=== PATIENT | male | born 1965 | race Caucasian/White ===

== ENCOUNTER 2018-06-25 11:27 | Emergency (ER) | payer SELFPAY ==
[~2018-06-25 11:27] MED LIST: AMOX1TAB PO; CAR200 PO; DIP5L PO; IBU200 PO; IBUP-136 PO; KET10 PO; LOR5/325 PO; MULT1CAP59 PO; PHEN100 PO; PRE20 PO; no rtn meds
--- NOTE | 2018-06-25 11:31 | ER Report ---
History and Physical Time Seen By MD: 11:31 HPI/ROS CHIEF COMPLAINT: Rib and abdominal pain HISTORY OF PRESENT ILLNESS: This is a 52-year-old male presents to the emergency department for right rib and abdominal pain. Patient states that about 5 days ago, he was running up his stairs outside of his house, slipped backwards and fell down on the stairs, nocturia and out of him, he did have a positive loss of consciousness, states he woke up when he was too cold. Has had intermittent headaches since then as well as right rib pain and increased right-sided abdominal pain. Denies fevers or chills. Denies nausea or vomiting. States has been several days since his last bowel movement. REVIEW OF SYSTEMS: Constitutional: No fever, no chills. Eyes: No discharge. ENT: No sore throat. Cardiovascular: As above. Respiratory: As above. Gastrointestinal: As above. Genitourinary: No hematuria. Musculoskeletal: As above. Skin: No rashes. Neurological: As above. Allergies: Coded Allergies: latex (Unverified Allergy, Mild, 06/25/18) Uncoded Allergies: sodium penathol (Allergy, Mild, 12/18/10) Home Meds Reported Medications Diphenhydramine Hcl (BENADRYL) 25 Mg Capsule, 25 MG PO Q6-8H PRN for ALLERGY SYMPTOMS, CAPSULE 06/25/18 Multivitamins (Multivitamin) 1 Each Capsule, 1 TAB PO DAILY 05/10/12 Carbamazepine (Tegretol) 200 Mg Tab, 200 MG PO BID, 0 Refills 02/02/11 Discontinued Scripts Hydrocodone Bit/Acetaminophen (HYDROCODON-ACETAMINOPHEN 5-325) 1 Each Tablet, 1- 2 EACH PO Q4-6H, #30 Prov:KASH FATIMA MD 03/16/14 Ketorolac Tromethamine (KETOROLAC TROMETHAMINE) 10 Mg Tab, 10 MG PO Q6H, #20 TAB Prov:KASH FATMIA MD 03/16/14 Past Medical/Surgical History Patient has a past medical and surgical history of tonsillectomy, seizures, GERD, headaches, left ankle arthritis, back pain, alcohol abuse. Hx Smoking: No Hx Substance Use Disorder: No Hx Alcohol Use: Yes (daily ) Constitutional Vital Sign - Last 24 Hours 06/25/18 06/25/18 06/25/18 06/25/18 11:30 11:30 11:32 11:37 Temp 97.5 Pulse 79 75 80 Resp 20 B/P (MAP) 131/88 (102) 131/88 Pulse Ox 93 91 91 06/25/18 06/25/18 06/25/18 06/25/18 11:42 11:47 11:52 11:57 Pulse 77 81 80 79 Pulse Ox 92 94 92 92 06/25/18 06/25/18 06/25/18 06/25/18 12:02 12:07 12:12 12:17 Pulse ? 80 82 Pulse Ox 89 92 06/25/18 06/25/18 06/25/18 06/25/18 12:22 12:27 12:32 12:47 Pulse 76 73 84 Pulse Ox 92 90 91 92 06/25/18 06/25/18 06/25/18 06/25/18 12:52 12:57 13:00 13:02 Pulse 88 80 78 B/P (MAP) ???/??? (1665) Pulse Ox 91 92 92 06/25/18 06/25/18 06/25/18 06/25/18 13:07 13:12 13:17 13:27 Pulse 77 76 80 81 Pulse Ox 91 90 91 92 06/25/18 06/25/18 06/25/18 06/25/18 13:30 13:32 13:37 13:42 Pulse 78 76 75 B/P (MAP) 146/101 (116) Pulse Ox 92 92 90 06/25/18 06/25/18 13:47 13:57 Pulse 78 80 Pulse Ox 91 94 Physical Exam General Appearance: The patient is alert, has no immediate need for airway protection and no signs of toxicity. Eyes: Pupils equal and round no pallor or injection. ENT, Mouth: Mucous membranes are moist. Respiratory: There are no retractions, lungs are clear to auscultation. Cardiovascular: Regular rate and rhythm, no murmurs, clicks or rubs. Gastrointestinal: Abdomen is round, moderately firm, tenderness to the right costal margin. no masses, hypoactive bowel sounds, no abdominal bruits. There is left sided retroperitoneal bruising. Neurological: Alert and oriented 4. Moving all extremities. Following all commands. No focal neuro deficits. Skin: Warm and dry, no rashes. Musculoskeletal: Neck is supple non tender. Extremities are nontender, nonswollen and have full range of motion. DIFFERENTIAL DIAGNOSIS: After history and physical exam differential diagnosis was considered for fracture, pneumothorax, pneumomediastinum, liver fracture, kidney fracture. Medical Decision Making Data Points Result Diagram: 06/25/18 1152 06/25/18 1152 Laboratory Hematology Test 06/25/18 11:52 06/25/18 13:24 Red Blood Count 4.53 M/uL (4.00-5.60) Mean Corpuscular Volume 102.8 fL (80.0-96.0) Mean Corpuscular Hemoglobin 34.7 pg (26.0-33.0) Mean Corpuscular Hemoglobin Concent 33.7 g/dL (32.0-36.0) Red Cell Distribution Width 13.4 % (11.5-14.5) Mean Platelet Volume 7.9 fL (7.2-11.1) Neutrophils (%) (Auto) 67.3 % (39.4-72.5) Lymphocytes (%) (Auto) 23.1 % (17.6-49.6) Monocytes (%) (Auto) 8.8 % (4.1-12.4) Eosinophils (%) (Auto) 0.1 % (0.4-6.7) Basophils (%) (Auto) 0.7 % (0.3-1.4) Nucleated RBC Relative Count (auto) 0.0 /100WBC Neutrophils # (Auto) 4.4 K/uL (2.0-7.4) Lymphocytes # (Auto) 1.5 K/uL (1.3-3.6) Monocytes # (Auto) 0.6 K/uL (0.3-1.0) Eosinophils # (Auto) 0.0 K/uL (0.0-0.5) Basophils # (Auto) 0.0 K/uL (0.0-0.1) Nucleated RBC Absolute Count (auto) 0.00 K/uL Sodium Level 139 mmol/L (137-145) Potassium Level 3.8 mmol/L (3.5-5.0) Chloride Level 104 mmol/L (98-107) Carbon Dioxide Level 23 mmol/L (22-30) Blood Urea Nitrogen 8 mg/dl (9-21) Creatinine 0.70 mg/dl (0.66-1.25) Glomerular Filtration Rate Calc > 60.0 Random Glucose 95 mg/dl (75-110) Calcium Level 9.4 mg/dl (8.4-10.2) Total Bilirubin 1.0 mg/dl (0.2-1.3) Aspartate Amino Transf (AST/SGOT) 60 U/L (0-35) Alanine Aminotransferase (ALT/SGPT) 76 U/L (0-56) Alkaline Phosphatase 78 U/L (0-126) Total Protein 7.6 g/dl (6.3-8.2) Albumin 4.5 g/dl (3.5-5.0) Urine Color Yellow Urine Clarity Clear Urine pH 5.0 pH (4.8-9.5) Urine Specific [place] S3 Urine Protein Negative mg/dL (NEGATIVE) Urine Glucose (UA) Negative mg/dL (NEGATIVE) Urine Ketones 20 mg/dL (NEGATIVE) Urine Blood Negative (NEGATIVE) Urine Nitrite Negative (NEGATIVE) Urine Bilirubin Negative (NEGATIVE) Urine Urobilinogen 2.0 mg/dL (0.2-1.9) Urine Leukocyte Esterase Negative (NEGATIVE) Urine RBC <1 /HPF (0-2/HPF) Urine WBC None /HPF (0-5/HPF) Urine Squamous Epithelial Cells None /LPF (</=FEW) Urine Bacteria Negative /HPF (NONE-FEW) Urine Mucus None /HPF (NONE-FEW) Chemistry Test 06/25/18 11:52 06/25/18 13:24 White Blood Count 6.5 k/uL (4.5-11.0) Red Blood Count 4.53 M/uL (4.00-5.60) Hemoglobin 15.7 g/dL (14.0-18.0) Hematocrit 46.6 % (42.0-52.0) Mean Corpuscular Volume 102.8 fL (80.0-96.0) Mean Corpuscular Hemoglobin 34.7 pg (26.0-33.0) Mean Corpuscular Hemoglobin Concent 33.7 g/dL (32.0-36.0) Red Cell Distribution Width 13.4 % (11.5-14.5) Platelet Count 216 K/uL (150-450) Mean Platelet Volume 7.9 fL (7.2-11.1) Neutrophils (%) (Auto) 67.3 % (39.4-72.5) Lymphocytes (%) (Auto) 23.1 % (17.6-49.6) Monocytes (%) (Auto) 8.8 % (4.1-12.4) Eosinophils (%) (Auto) 0.1 % (0.4-6.7) Basophils (%) (Auto) 0.7 % (0.3-1.4) Nucleated RBC Relative Count (auto) 0.0 /100WBC Neutrophils # (Auto) 4.4 K/uL (2.0-7.4) Lymphocytes # (Auto) 1.5 K/uL (1.3-3.6) Monocytes # (Auto) 0.6 K/uL (0.3-1.0) Eosinophils # (Auto) 0.0 K/uL (0.0-0.5) Basophils # (Auto) 0.0 K/uL (0.0-0.1) Nucleated RBC Absolute Count (auto) 0.00 K/uL Glomerular Filtration Rate Calc > 60.0 Calcium Level 9.4 mg/dl (8.4-10.2) Total Bilirubin 1.0 mg/dl (0.2-1.3) Aspartate Amino Transf (AST/SGOT) 60 U/L (0-35) Alanine Aminotransferase (ALT/SGPT) 76 U/L (0-56) Alkaline Phosphatase 78 U/L (0-126) Total Protein 7.6 g/dl (6.3-8.2) Albumin 4.5 g/dl (3.5-5.0) Urine Color Yellow Urine Clarity Clear Urine pH 5.0 pH (4.8-9.5) Urine Specific [place] S3 Urine Protein Negative mg/dL (NEGATIVE) Urine Glucose (UA) Negative mg/dL (NEGATIVE) Urine Ketones 20 mg/dL (NEGATIVE) Urine Blood Negative (NEGATIVE) Urine Nitrite Negative (NEGATIVE) Urine Bilirubin Negative (NEGATIVE) Urine Urobilinogen 2.0 mg/dL (0.2-1.9) Urine Leukocyte Esterase Negative (NEGATIVE) Urine RBC <1 /HPF (0-2/HPF) Urine WBC None /HPF (0-5/HPF) Urine Squamous Epithelial Cells None /LPF (</=FEW) Urine Bacteria Negative /HPF (NONE-FEW) Urine Mucus None /HPF (NONE-FEW) Urinalysis Test 2/20/19 13:24 Urine Color Yellow Urine Clarity Clear Urine pH 5.0 pH (4.8-9.5) Urine Specific [place] S3 Urine Protein Negative mg/dL (NEGATIVE) Urine Glucose (UA) Negative mg/dL (NEGATIVE) Urine Ketones 20 mg/dL (NEGATIVE) Urine Blood Negative (NEGATIVE) Urine Nitrite Negative (NEGATIVE) Urine Bilirubin Negative (NEGATIVE) Urine Urobilinogen 2.0 mg/dL (0.2-1.9) Urine Leukocyte Esterase Negative (NEGATIVE) Urine RBC <1 /HPF (0-2/HPF) Urine WBC None /HPF (0-5/HPF) Urine Squamous Epithelial Cells None /LPF (</=FEW) Urine Bacteria Negative /HPF (NONE-FEW) Urine Mucus None /HPF (NONE-FEW) EKG/Imaging Imaging Location: [facility] Patient: Marty Orlando : 1965 Visit/Account:[id number] Date of Sevice: 06/25/2018 Exam type: RIBS RIGHT History: fall, rib and back pain Comparison: Two-view chest performed today. Findings: Two views of the inferior right ribs demonstrates a minimally displaced fracture through the posterior lateral aspect of the right 10th rib IMPRESSION: 1. Minimally displaced fracture through the posterior lateral aspect the right 10th rib Report Dictated By: Heidy Nunes MD at 06/25/2018 1:14 PM Report E-Signed By: Heidy Nunes MD at 06/25/2018 1:16 PM WSN:[email or web address] Location: [facility] Patient: Marty Orlando : 1965 Visit/Account:[id number] Date of Sevice: 06/25/2018 Exam type: CHEST PA LAT History: fall, rib and back pain Comparison: Today's right rib series. Findings: There is a minimally displaced fracture through the posterior lateral aspect right 10th rib. There is no evidence of pulmonary consolidation pleural effusion or pneumothorax or pneumomediastinum. The cardiac silhouette is normal in size. IMPRESSION: 1. Minimally displaced fracture through the posterior lateral aspect of the right 10th rib Report Dictated By: Heidy Nunes MD at 06/25/2018 1:16 PM Report E-Signed By: Heidy Nunes MD at 06/25/2018 1:16 PM MELVINN:SOWMYA Location: [facility] Patient: Marty Orlando : 1965 Visit/Account:[id number] Date of Sevice: 06/25/2018 EXAMINATION: CT abdomen and pelvis with contrast COMPARISON: None. HISTORY: fall, rib and back pain since 06/21/2018. PROCEDURE: Multiplanar contrast enhanced CT of the abdomen and pelvis with 75 mL intravenous Isovue 370. One of the following dose optimization techniques was utilized in the performance of this exam: Automated exposure control; adjustment of the mA and/or kV according to the patient's size; or use of an iterative reconstruction technique. Specific details can be referenced in the facility's radiology CT exam operational policy. FINDINGS: Visualized thorax: No acute findings. Liver: Hepatic steatosis. Gallbladder and biliary system: Negative Spleen: Negative. Pancreas: Negative. Adrenal glands: Negative. Kidneys and bladder: No renal mass or evidence of an obstructive uropathy. Urinary bladder is unremarkable. Vessels: Minimal iliac atherosclerosis. Otherwise negative. Bowel and mesentery: Tiny hiatal hernia. No gastric distention. No small bowel obstruction. Appendix is unremarkable. Small amount of stool in the colon. Left hemicolon mild diverticulosis. No bowel or mesenteric inflammation. Pelvic organs: Negative. Lymph nodes: No adenopathy. Free air/free fluid: None. Abdominal wall and osseous structures: Inguinal herniorrhaphy. No hernia. Minimal degenerative change throughout the osseous structures. Right posterior 10th rib nondisplaced fracture. Right posterior 11th rib healed fracture. Right posterior 12th rib nondisplaced fracture. L2 right transverse process age-indeterminate mildly displaced fracture. IMPRESSION: 1. Right posterior 10th and 12th rib nondisplaced fractures. 2. L2 right transverse process age-indeterminate mildly displaced fracture. 3. No findings of acute soft tissue trauma in the abdomen or pelvis. 4. Chronic/incidental findings as described above. Report Dictated By: Vasile Oviedo MD at 06/25/2018 12:58 PM Report E-Signed By: Vasile Oviedo MD at 06/25/2018 1:05 PM [facility] Course/Re-evaluation Clinical Indication for ER IV: IV Access ED Course The patient was admitted to room. A history and physical were obtained. Differential diagnoses were considered. After a lengthy discussion with the patient, I did make the recommendation we do a CT of the brain and cervical spine, the patient declined, I did tell him that with drinking alcohol and a daily basis this does increase his risk for intracranial bleeding, patient again declined. A CT of the abdomen and pelvis was obtained, as well as a right rib series. Patient was noted to have the 10th and 12th rib fractured on the right. No intra-abdominal abnormalities identified. I did update patient on the results. CBC, CMP unremarkable. UA negative for blood. Patient was given a lidocaine patch on the right ribs. Instructed to remove the lidocaine patch in 12 hours. Patient was instructed to follow-up with his primary care provider within one week for reevaluation. The patient had no other questions or concerns at this time, was agreeable with this plan of care and discharged home. 06/25/2018 12:14:31 pm the patient did decline a CT of the brain and cervical spine, I did tell him that with the positive loss of consciousness, drinking alcohol each day and the current headache I am concerned about intracranial bleeding, he continued to decline at this time. Decision to Disposition Date: Jun 25, 2018 Decision to Disposition Time: 13:46 Depart Departure Latest Vital Signs Vital Signs Date Time Temp Pulse Resp B/P (MAP) Pulse Ox O2 Delivery O2 Flow Rate FiO2 06/25/18 13:57 80 94 06/25/18 13:30 146/101 (116) 06/25/18 11:30 97.5 20 Impression: Primary Impression: Multiple rib fractures Additional Impression: Fall due to slipping on ice or snow Condition: Improved Disposition: HOME OR SELF-CARE Patient Instructions: Rib Fracture (ED) Additional Instructions: You have 2 rib Fractures on the right. Please avoid drinking alcohol on a daily basis, this will increase her chance for bleeding. Drink plenty of water. Get plenty of rest. Take ibuprofen or Tylenol as needed for pain. You can use [id number] Lidoderm patches as needed. The one that we have given you is prescription strength, this will remain on for 12 hours and then remove it. If no improvement in the next 5-7 days please off her primary care provider. Return to the emergency department for any other concerns or worsening symptoms. Problem Qualifiers Primary Impression: Multiple rib fractures Encounter type: initial encounter Fracture type: closed Laterality: right Qualified Codes: S22.41XA - Multiple fractures of ribs, right side, initial encounter for closed fracture Additional Impression: Fall due to slipping on ice or snow Encounter type: initial encounter Qualified Codes: W00.9XXA - Unspecified fall due to ice and snow, initial encounter ROSAS GEORGE BUSINESS [employer]NALYT[employer] SPECIALIST-BC Jun 25, 2018 11:31
[2018-06-25] MEDS ORDERED: DIPH-740 PO (11:38)
[2018-06-25 12:12] LABS: PLATELET COUNT, AUTOMATED 216 K/uL (150-450)
[2018-06-25] MEDS ORDERED: IOPAMIDOL 61% 75 ML INFUS BTL 75 ML ONE (12:13)
[2018-06-25] MEDS ORDERED: NS(*) 0.9% 1000 ML BAG 1,000 ML IV ONE (12:35)
--- NOTE | 2018-06-25 13:10 | RADIOLOGY IMAGING REPORT ---
FACILITY: [facility] PATIENT NAME: Marty Orlando : 1965 MR: [id number] V: [id number] EXAM DATE: ORDERING PHYSICIAN: ROSAS GEORGE TECHNOLOGIST: Location: [facility] Patient: Marty Orlando : 1965 Visit/Account:[id number] Date of Sevice: 06/25/2018 EXAMINATION: CT abdomen and pelvis with contrast COMPARISON: None. HISTORY: fall, rib and back pain since 06/21/2018. PROCEDURE: Multiplanar contrast enhanced CT of the abdomen and pelvis with 75 mL intravenous Isovue 3 70. One of the following dose optimization techniques was utilized in the performance of this exam: A utomated exposure control; adjustment of the mA and/or kV according to the patient's size; or use of an iterative reconstruction technique. Specific details can be referenced in the facility's radiolo gy CT exam operational policy. FINDINGS: Visualized thorax: No acute findings. Liver: Hepatic steatosis. Gallbladder and biliary system: Negative Spleen: Negative. Pancreas: Negative. Adrenal glands: Negative. Kidneys and bladder: No renal mass or evidence of an obstructive uropathy. Urinary bladder is unrema rkable. Vessels: Minimal iliac atherosclerosis. Otherwise negative. Bowel and mesentery: Tiny hiatal hernia. No gastric distention. No small bowel obstruction. Append ix is unremarkable. Small amount of stool in the colon. Left hemicolon mild diverticulosis. No bow el or mesenteric inflammation. Pelvic organs: Negative. Lymph nodes: No adenopathy. Free air/free fluid: None. Abdominal wall and osseous structures: Inguinal herniorrhaphy. No hernia. Minimal degenerative verma ge throughout the osseous structures. Right posterior 10th rib nondisplaced fracture. Right posteri or 11th rib healed fracture. Right posterior 12th rib nondisplaced fracture. L2 right transverse pr ocess age-indeterminate mildly displaced fracture. IMPRESSION: 1. Right posterior 10th and 12th rib nondisplaced fractures. 2. L2 right transverse process age-indeterminate mildly displaced fracture. 3. No findings of acute soft tissue trauma in the abdomen or pelvis. 4. Chronic/incidental findings as described above. Report Dictated By: Vasile Oviedo MD at 06/25/2018 12:58 PM Report E-Signed By: Vasile Oviedo MD at 06/25/2018 1:05 PM WSN:[email or web address]
--- NOTE | 2018-06-25 13:21 | RADIOLOGY IMAGING REPORT ---
FACILITY: [facility] [place] PATIENT NAME: Marty Orlando : 1965 MR: [id number] V: [id number] EXAM DATE: ORDERING PHYSICIAN: ROSAS GEORGE TECHNOLOGIST: Location: [facility] [place] Patient: Marty Orlando : 1965 Visit/Account:[id number] Date of Sevice: 06/25/2018 Exam type: RIBS RIGHT History: fall, rib and back pain Comparison: Two-view chest performed today. Findings: Two views of the inferior right ribs demonstrates a minimally displaced fracture through the posterio r lateral aspect of the right 10th rib IMPRESSION: 1. Minimally displaced fracture through the posterior lateral aspect the right 10th rib Report Dictated By: Heidy Nunes MD at 06/25/2018 1:14 PM Report E-Signed By: Heidy Nunes MD at 06/25/2018 1:16 PM WSN:[email or web address]
--- NOTE | 2018-06-25 13:22 | RADIOLOGY IMAGING REPORT ---
FACILITY: [facility] [place] PATIENT NAME: Marty Orlando : 1965 MR: [id number] V: [id number] EXAM DATE: ORDERING PHYSICIAN: ROSAS GEORGE TECHNOLOGIST: Location: [facility] [place] Patient: Marty Orlando : 1965 Visit/Account:[id number] Date of Sevice: 06/25/2018 Exam type: CHEST PA LAT History: fall, rib and back pain Comparison: Today's right rib series. Findings: There is a minimally displaced fracture through the posterior lateral aspect right 10th rib. There i s no evidence of pulmonary consolidation pleural effusion or pneumothorax or pneumomediastinum. The cardiac silhouette is normal in size. IMPRESSION: 1. Minimally displaced fracture through the posterior lateral aspect of the right 10th rib Report Dictated By: Heidy Nunes MD at 06/25/2018 1:16 PM Report E-Signed By: Heidy Nunes MD at 06/25/2018 1:16 PM WSN:[email or web address]
[2018-06-25 13:30] VITALS: BP 146/101
[2018-06-25] MEDS ORDERED: LIDOCAINE 5% PATCH TP SCH (13:45)
[2018-06-25] MEDS ORDERED: PATCH REMOVAL 1 EA TOP SCH (21:00)
== END 2018-06-25 14:08 | disposition home or self-care (01) ==
LOC: ER 11:34
DX: S22.41XA Multiple fractures of ribs, right side, initial encounter for closed fracture (principal); W00.9XXA Unspecified fall due to ice and snow, initial encounter
CPT/HCPCS: 71046; 71100; 74177; 81001; 85025; 96360; 99284; J7030; Q9967; 82040; 82247; 82310; 82374; 82435; 82565; 82947; 84075; 84132; 84155; 84295; 84450; 84460; 84520